=== PATIENT | male | born 1960 | race Two or more races ===

== ENCOUNTER 2022-01-27 11:39 | Inpatient (IN) | payer MEDICAID, OTHER ==
[~2022-01-27] VITALS: Ht 172.7 cm; Wt 116.0 kg
[2022-01-27 13:08] LABS: Basophils # (auto) 0 10 ^3/uL (0-0.2); Basophils % (auto) 0.4 % (0.0-2.0); Eosinophils # (auto) 0.1 10 ^3/uL (0-0.8); Eosinophils % (auto) 1.3 % (0.0-7.0); Hematocrit 41.7 % (41.0-53.0); Hemoglobin 13.9 g/dL (13.5-17.5); Lymphocytes # (auto) 2.2 10 ^3/uL (0.4-5.4); Lymphocytes % (auto) 27.2 % (10.0-50.0); Mean Corpuscular Hemoglobin 27.7 pg (28.0-32.0); Mean Corpuscular Hgb Conc. 33.4 g/dL (32.0-36.0); Mean Corpuscular Volume 82.9 fL (80.0-100.0); Monocytes # (auto) 0.5 10 ^3/uL (0-1.3); Monocytes % (auto) 6.9 % (0.0-12.0); Neutrophils # (auto) 5.1 10 ^3/uL (1.6-8.6); Neutrophils % (auto) 64.2 % (37.0-80.0); Nucleated Red Blood Cells % 0.2 %; Red Blood Cells 5.03 10^6/uL (4.5-5.90); Red Cell Distribution Width 16.3 % (11.8-14.3); White Blood Cell 7.9 10^3/uL (4.4-10.8)
[2022-01-27 13:14] LABS: Albumin 3.7 g/dL (3.4-5.0); BUN/Creatinine Ratio 14.3; Calcium 9.6 mg/dL (8.5-10.1); INR 0.98 (0.9-1.15); Partial Thromboplastin Time 24.8 sec (23.6-33.0); Potassium 4.1 mmol/L (3.5-5.1)
[2022-01-27 13:16] LABS: Bilirubin, Total 0.3 mg/dL (0.2-1.0); Total Protein 7.6 g/dL (6.4-8.2)
[2022-01-27] MEDS ORDERED: DEXTROSE (50%) 50ML SYRG IV PRN ×2 (15:15→17:45)
[2022-01-27] MEDS ORDERED: NITROGLYCERIN 0.4 MG SL TAB SL PRN (15:15)
[2022-01-27] MEDS ORDERED: SODIUM CHLORIDE 0.9% 1,000 ML IV ONE (15:15)
[2022-01-27] MEDS ORDERED: MORPHINE SULFATE INJ 2 MG/ml SYRG IV PRN (15:15)
[2022-01-27] MEDS ORDERED: ONDANSETRON HCL 4 MG/2 ML VIAL IV ONE (15:15)
[2022-01-27 15:41] LABS: Cholesterol 122 mg/dL (< 200)
[2022-01-27 15:44] LABS: HDL Cholesterol 37 mg/dL (40-59); LDL Cholesterol 62 mg/dL (< 100); Triglycerides 225 mg/dL (< 150)
[2022-01-27 15:51] LABS: Urine WBC None Seen /hpf (0 - 3)
[2022-01-27 16:07] LABS: Urine Bacteria NONE SEEN /hpf (None Seen); Urine Blood Negative /uL (Negative); Urine Specific Gravity 1.024 (1.001-1.035)
[2022-01-27 16:25] LABS: Alcohol, Urine < 3.0 mg/dL (0-10); Amphetamine Screen, Urine NEGATIVE (NEGATIVE); Barbiturate Scree,Urine NEGATIVE (NEGATIVE); Benzodiazephine Screen, Urine NEGATIVE (NEGATIVE); Cannabinoid Screen, Urine NEGATIVE (NEGATIVE); Cocaine Screen, Urine NEGATIVE (NEGATIVE); Opiate Scree,Urine NEGATIVE (NEGATIVE); Phencyclidine Screen, Urine NEGATIVE (NEGATIVE)
[2022-01-27] MEDS: D5W/SOD CHL 0.45% 1,000 ML IV SCH (16:49)
[2022-01-27] MEDS ORDERED: InsuLIN REG 1unit/0.01ml Soln (100units/ml) SC SCH ×2 (17:00→22:00)
[2022-01-27] MEDS ORDERED: ACCU-CHEK COMFORT CURVE STRIP VI SCH (17:00)
[2022-01-27] MEDS ORDERED: MORPHINE SULFATE INJ 2 MG/ml SYRG IV SCH (18:00)
[2022-01-27] MEDS: ACCU-CHEK COMFORT CURVE STRIP VI SCH ×2 (19:30→21:34)
[2022-01-28] MEDS: ACCU-CHEK COMFORT CURVE STRIP VI SCH ×8 (00:03→17:36)
[2022-01-28] MEDS ORDERED: SUCCINYLCHOLINE CHLORIDE 20 MG/ML 10ML VIAL IV ONE (00:11)
[2022-01-28] MEDS ORDERED: ETOMIDATE (2MG/ML) 20ML VIAL IV ONE (00:11)
[2022-01-28] MEDS ORDERED: ROCURONIUM 10MG/ML 10ML VIAL IV ONE (00:11)
[2022-01-28 00:15] VITALS: BP 130/78
[2022-01-28 04:52] LABS: Basophils # (auto) 0.1 10 ^3/uL (0-0.2); Basophils % (auto) 0.9 % (0.0-2.0); Eosinophils # (auto) 0.1 10 ^3/uL (0-0.8); Eosinophils % (auto) 1.6 % (0.0-7.0); Hemoglobin 13.8 g/dL (13.5-17.5); Lymphocytes # (auto) 2.5 10 ^3/uL (0.4-5.4); Lymphocytes % (auto) 30.3 % (10.0-50.0); Mean Corpuscular Hemoglobin 28.5 pg (28.0-32.0); Mean Corpuscular Hgb Conc. 34.6 g/dL (32.0-36.0); Mean Corpuscular Volume 82.5 fL (80.0-100.0); Monocytes # (auto) 0.4 10 ^3/uL (0-1.3); Monocytes % (auto) 5.4 % (0.0-12.0); Neutrophils # (auto) 5.1 10 ^3/uL (1.6-8.6); Neutrophils % (auto) 61.8 % (37.0-80.0); Nucleated Red Blood Cells % 0.1 %; Red Blood Cells 4.85 10^6/uL (4.5-5.90); Red Cell Distribution Width 16.6 % (11.8-14.3); White Blood Cell 8.3 10^3/uL (4.4-10.8)
[2022-01-28 05:11] LABS: Albumin 3.5 g/dL (3.4-5.0); Calcium 8.5 mg/dL (8.5-10.1); Potassium 4.3 mmol/L (3.5-5.1)
[2022-01-28 05:15] LABS: BUN/Creatinine Ratio 14.3; Bilirubin, Total 0.5 mg/dL (0.2-1.0)
[2022-01-28 08:00] VITALS: BP 112/65
[2022-01-28] MEDS: D5W/SOD CHL 0.45% 1,000 ML IV SCH (08:20)
[2022-01-28] MEDS ORDERED: DEXTROSE (50%) 50ML SYRG IV PRN (11:15)
[2022-01-28 11:22] LABS: Magnesium 2.3 mg/dL (1.6-2.6); Phosphorus 3.5 mg/dL (2.5-4.90)
[2022-01-28 11:45] VITALS: BP 121/53
[2022-01-28] MEDS: InsuLIN REG 1unit/0.01ml Soln (100units/ml) SC SCH ×2 (12:00→17:36)
[2022-01-28] MEDS ORDERED: SITA100T7 PO (12:39)
[2022-01-28] MEDS ORDERED: PIO30T PO (12:39)
[2022-01-28] MEDS ORDERED: BENA10TA15 PO (12:39)
[2022-01-28] MEDS ORDERED: EMPA1TAB3 PO (12:39)
[2022-01-28] MEDS ORDERED: METF-370 PO (12:39)
[2022-01-28] MEDS ORDERED: GLIM4TAB42 PO (12:39)
[2022-01-28] MEDS ORDERED: ASPI-543 PO (12:39)
[2022-01-28] MEDS ORDERED: GABA100C9 PO (12:39)
[2022-01-28] MEDS ORDERED: OMEP-335 PO (12:39)
[2022-01-28] MEDS ORDERED: ATOR40TA52 PO (12:39)
[2022-01-28 16:12] VITALS: BP 123/72
[2022-01-28 19:01] VITALS: BP 121/62
[2022-01-29] VITALS (7 sets, daily range): BP systolic 98–135; BP diastolic 41–78
[2022-01-29] MEDS: ACCU-CHEK COMFORT CURVE STRIP VI SCH ×3 (00:21→12:00)
[2022-01-29] MEDS: D5W/SOD CHL 0.45% 1,000 ML IV SCH (00:22)
[2022-01-29] MEDS: InsuLIN REG 1unit/0.01ml Soln (100units/ml) SC SCH ×3 (05:31→12:00)
[2022-01-29] MEDS ORDERED: METF-370 PO (13:19)
== END 2022-01-29 16:30 | disposition home or self-care (01) | DRG 48 ==
LOC: ER 11:39 → EDBD 11:39 → WEST WING 15:06 → DOU IN ICU 23:58 → TELE-WESTW 01-29 13:53
PROVIDERS: ADMIT Registered Nurse; ATTEND Internal Medicine
DX: G90.8 Other disorders of autonomic nervous system (principal); E11.649 Type 2 diabetes mellitus with hypoglycemia without coma; E11.22 Type 2 diabetes mellitus with diabetic chronic kidney disease; E66.01 Morbid (severe) obesity due to excess calories; N18.2 Chronic kidney disease, stage 2 (mild); Z20.822 Contact with and (suspected) exposure to COVID-19; I12.9 Hypertensive chronic kidney disease with stage 1 through stage 4 chronic kidney disease, or unspecified chronic kidney disease; Z90.49 Acquired absence of other specified parts of digestive tract; Z79.84 Long term (current) use of oral hypoglycemic drugs; Z86.73 Personal history of transient ischemic attack (TIA), and cerebral infarction without residual deficits; Z71.3 Dietary counseling and surveillance; Z68.39 Body mass index [BMI] 39.0-39.9, adult
CPT/HCPCS: 36415; 70450; 71045; 80053; 80061; 80307; 80320; 81001; 82962; 83036; 83735; 83880; 84100; 84439; 84443; 84484; 85025; 85610; 85730; 87081; 93005; 93306; 93886; 96361; 96374; 97163; G0378; J0330; J2405

== ENCOUNTER 2023-07-09 12:16 | Emergency (ER) | payer MEDICAID ==
[~2023-07-09] VITALS: Ht 172.7 cm; Wt 113.6 kg
[~2023-07-09 12:16] MED LIST: ASPI-543 PO; ATOR40TA52 PO; BENA-19 PO; GABA-1308 PO; METF-370 PO; OMEP-335 PO
[2023-07-09 13:05] LABS: Basophils # (auto) 0 10 ^3/uL (0-0.2); Basophils % (auto) 0.4 % (0.0-2.0); Eosinophils # (auto) 0.1 10 ^3/uL (0-0.8); Eosinophils % (auto) 1.1 % (0.0-7.0); Hematocrit 44.5 % (41.0-53.0); Hemoglobin 14.5 g/dL (13.5-17.5); Lymphocytes # (auto) 1.7 10 ^3/uL (0.4-5.4); Lymphocytes % (auto) 19.9 % (10.0-50.0); Mean Corpuscular Hemoglobin 27.6 pg (28.0-32.0); Mean Corpuscular Hgb Conc. 32.5 g/dL (32.0-36.0); Mean Corpuscular Volume 85.1 fL (80.0-100.0); Monocytes # (auto) 0.6 10 ^3/uL (0-1.3); Monocytes % (auto) 7.5 % (0.0-12.0); Neutrophils % (auto) 71.1 % (37.0-80.0); Nucleated Red Blood Cells % 0.1 %; Red Blood Cells 5.23 10^6/uL (4.5-5.90); Red Cell Distribution Width 14.9 % (11.8-14.3); White Blood Cell 8.4 10^3/uL (4.4-10.8)
[2023-07-09 13:17] LABS: Alanine Aminotransferase 33 U/L (7-40); Albumin 4.6 g/dL (3.2-4.8); Alkaline Phosphatase 62 U/L (46-116); Anion Gap 8 (5-15); Aspartate Aminotransferase 14 U/L (13-40); BUN/Creatinine Ratio 18.8 (10.0-20.0); Bilirubin, Total 0.6 mg/dL (0.2-1.0); Blood Urea Nitrogen 18 mg/dL (9-23); Calcium 9.3 mg/dL (8.7-10.4); Carbon Dioxide 24 mmol/L (20-30); Chloride 104 mmol/L (98-107); Glucose 158 mg/dL (74-106); Potassium 4.2 mmol/L (3.5-5.1); Sodium 136 mmol/L (136-145); Total Protein 7.2 g/dL (5.7-8.2)
[2023-07-09 16:13] VITALS: PULSE 64; RESP 16; O2SAT 95
[2023-07-09 19:30] VITALS: TEMP 98.4
[2023-07-09 19:44] VITALS: PULSE 62; RESP 14; O2SAT 95
[2023-07-10 04:30] VITALS: BP 131/50; PULSE 64; RESP 14; O2SAT 91
== END 2023-07-10 09:13 | disposition left against medical advice (07) ==
LOC: ER 12:16 → EDBD 12:16 → ER 07-10 09:13
DX: I24.9 Acute ischemic heart disease, unspecified (principal); E11.9 Type 2 diabetes mellitus without complications; Z86.73 Personal history of transient ischemic attack (TIA), and cerebral infarction without residual deficits; Z90.49 Acquired absence of other specified parts of digestive tract; Z79.82 Long term (current) use of aspirin; Z79.899 Other long term (current) drug therapy
CPT/HCPCS: 36415; 71045; 80053; 84484; 85025; 85379; 93005